=== PATIENT | male | born 1975 | race African-American/Black ===

== ENCOUNTER 2016-04-17 18:30 | Emergency (ER) | payer SELFPAY ==
[~2016-04-17] VITALS: Ht 193 cm; Wt 108.9 kg
[2016-04-17 19:14] VITALS: BP 128/94
[2016-04-17] MEDS ORDERED: IBUP-1007 PO (20:49)
[2016-04-17] MEDS ORDERED: PERM60CR11 TP (20:49)
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
--- NOTE | 2016-04-18 09:09 | RAD ---
Portable left elbow, 3 views, 04/17/2016: History: Medial epicondylar pain No fracture or dislocation is identified. No significant arthritic change is seen. No joint effusion is evident. IMPRESSION: No significant left elbow abnormality is detected.
== END 2016-04-17 20:59 | disposition home or self-care (01) ==
LOC: ER 18:30
DX: M77.02 Medial epicondylitis, left elbow (principal); B86 Scabies; F17.200 Nicotine dependence, unspecified, uncomplicated; Z98.61 Coronary angioplasty status; Z91.013 Allergy to seafood
CPT/HCPCS: 73080; 99284

== ENCOUNTER 2016-06-05 20:17 | Emergency (ER) | payer SELFPAY ==
[~2016-06-05] VITALS: Ht 182.9 cm; Wt 105.7 kg
[~2016-06-05 20:17] MED LIST: IBUP-1007 PO; PERM60CR11 TP
[2016-06-05 20:23] VITALS: BP 127/79
--- NOTE | 2016-06-05 20:55 | PHYS DOC ---
Past Medical History Past Medical History: Angina, Other Additional Past Medical Histor: IRREGULAR HEARTBEAT Past Surgical History: Angioplasty Additional Past Surgical Histo: HEART CATH WITH NO STENTS, Rt ELBOW sx Alcohol Use: None Drug Use: None Adult General Chief Complaint Chief Complaint: SKIN PROBLEM [facility] HPI Patient is a 41 year old female presents emergency department stating that he has 2 abscesses on the back of his head when abscesses bilateral groin areas that he's had for the last few days. He denies any drainage or discharge coming from either of those. He does state that he has multiple little pinpoint scabbed areas on his chest and arms in which she's had since February. He was seen here in March was provided with permethrin cream in which patient states he lost the prescription. Patient denies any drainage or discharge coming from any of the areas. Denies any fever, chills. Review of Systems Review of Systems Constitutional: Denies fever or chills [] Eyes: Denies change in visual acuity, redness, or eye pain [] HENT: Denies nasal congestion or sore throat [] Respiratory: Denies cough or shortness of breath [] Cardiovascular: No additional information not addressed in HPI [] GI: Denies abdominal pain, nausea, vomiting, bloody stools or diarrhea [] : Denies dysuria or hematuria [] Musculoskeletal: Denies back pain or joint pain [] Integument: rash and multiple abscesses Neurologic: Denies headache, focal weakness or sensory changes [] Current Medications Current Medications Current Medications Medications (Trade) Dose Ordered Sig/[facility] Start Time Stop Time Status Last Admin Dose Admin Lidocaine/Sodium Bicarbonate (Buffered Lidocaine 1%) 20 ml 1X ONCE 06/05/16 21:00 06/05/16 21:01 DC 06/05/16 21:00 20 ML Allergies Allergies Allergies Coded Allergies Type Severity Reaction Last Updated Verified shellfish derived Allergy Intermediate rash, vomiting 01/07/15 Yes Physical Exam Physical Exam Constitutional: Well developed, well nourished, no acute distress, non-toxic appearance. [] HENT: Normocephalic, atraumatic, bilateral external ears normal, oropharynx moist, no oral exudates, nose normal. [] Eyes: PERRLA, EOMI, conjunctiva normal, no discharge. [] Neck: Normal range of motion, no tenderness, supple, no stridor. [] Cardiovascular:Heart rate regular rhythm, no murmur [] Lungs & Thorax: Bilateral breath sounds clear to auscultation [] Skin: Warm, dry, no erythema. Patient with generalized pinpoint rashes throughout the abdomen and arms and chest area. Patient with 2 abscesses noted on the back of his head that is soft and tender and appears to be pustular. Patient also noted in the bilateral right and left groin area that appears to be red in color with no fluctuation noted. Back: No tenderness Extremities: No tenderness, no cyanosis, no clubbing, ROM intact, no edema. [] Neurologic: Alert and oriented X 3, normal motor function, normal sensory function, no focal deficits noted. [] Psychologic: Affect normal, judgement normal, mood normal. [] Current Patient Data Vital Signs Vital Signs Date Time Temp Pulse Resp B/P Pulse Ox O2 Delivery O2 Flow Rate FiO2 06/05/16 20:23 98.8 87 18 98 Room Air 98.8 EKG EKG [] Radiology/Procedures Radiology/Procedures [] Course & Med Decision Making Course & Med Decision Making Pertinent Labs and Imaging studies reviewed. (See chart for details) 2 areas on the back of the head were injected with lidocaine total lidocaine use was approximately 3 mL. #11 blade was used to incise both areas with the area behind the right ear have a minimal yellow drainage noted. Area on the back of the head had thick yellow drainage noted. Patient will be placed on antibiotics Bactrim 1 tablet twice day for the next 10 days. We'll also provide patient with permethrin cream for the rest of his body. Patient was provided with signs and symptoms to return back to emergency department. Patient agrees with discharge instructions treatment regimens and follow-up recommendations. [] Dragon Disclaimer Dragon Disclaimer This electronic medical record was generated, in whole or in part, using a voice recognition dictation system. Departure Departure Impression: Primary Impression: Abscess Additional Impression: Scabies Disposition: 01 HOME, SELF-CARE Condition: STABLE Referrals: HONG BOLAND MD (PCP) Patient Instructions: Abscess, [id number], Incision and Drainage, Care After , Scabies Additional Instructions: Activity as tolerated. Medications as prescribed. Is a permethrin cream tonight and he may repeat it in [address] her on your body leave it on for 8-10 hours and then wash it off. Tylenol or ibuprofen for pain and discomfort. Moist packs to the groin area where you have further abscesses. Follow-up primary care physician in the next 3-5 days. Turn back to emergency prior signs symptoms of become worse. Scripts Sulfamethoxazole/Trimethoprim (Bactrim Ds Tablet)1 Each Tablet1 Tab PO BID #20 TAB Prov:MARÍA CHAMPION APRN 06/05/16 Permethrin 60 Gm Cream..g.1 [place] TP ONCE #60 GM Ref 1 Prov:MARÍA CHAMPION APRN 06/05/16 Problem Qualifiers MARÍA CHAMPION APRN Jun 05, 2016 20:55
[2016-06-05] MEDS ORDERED: LIDOCAINE 1% / SOD BICARB 8.4% 20 ML VIAL. IJ ONE (21:00)
[2016-06-05] MEDS ORDERED: PERM60CR2 TP (21:44)
[2016-06-05] MEDS ORDERED: SULF1TAB24 PO (21:44)
== END 2016-06-05 21:59 | disposition home or self-care (01) ==
LOC: ER 20:17
DX: L02.811 Cutaneous abscess of head [any part, except face] (principal); L02.214 Cutaneous abscess of groin; B86 Scabies; Z91.013 Allergy to seafood; Z98.61 Coronary angioplasty status
CPT/HCPCS: 10060; 10061; 99283-25; 99284-25

== ENCOUNTER 2016-07-29 23:35 | Emergency (ER) | payer SELFPAY ==
[~2016-07-29] VITALS: Ht 193 cm; Wt 108.9 kg
[~2016-07-29 23:35] MED LIST changes: +PERM60CR12 TP; +SULF1TAB24 PO
[2016-07-29 23:43] VITALS: BP 128/85
[2016-07-30] MEDS ORDERED: DIPHTH,PERTUSS(ACELL),TET TOX 0.5 ML DISP.SYRIN. VAX IM ONE
[2016-07-30] MEDS ORDERED: LIDOCAINE 1%/EPI 1:100,000 20 ML VIAL. IJ ONE
[2016-07-30] MEDS ORDERED: HYDROcodone/APAP 5/325MG 1 TAB TABLET PO ONE (00:15)
[2016-07-30] MEDS ORDERED: MUPI22OI2 TP (00:19)
[2016-07-30] MEDS ORDERED: SULF1TAB24 PO (00:19)
--- NOTE | 2016-07-30 00:19 | PHYS DOC ---
Past Medical History Past Medical History: Angina, Other Additional Past Medical Histor: IRREGULAR HEARTBEAT Past Surgical History: Angioplasty Additional Past Surgical Histo: HEART CATH WITH NO STENTS, Rt ELBOW sx Alcohol Use: None Drug Use: None Adult General Chief Complaint Chief Complaint: ABSCESS HPI HPI Patient is a 41 year old male who presents with abscess. The patient reports red, painful, swollen area to right medial buttock. Also has swelling to left posterior thigh & multiple facial nodules after shaving. He denies fevers/ chills, vomiting. Tetanus up to date. History of previous abscess to elbow requiring surgical I&D. Review of Systems Review of Systems Constitutional: Denies fever or chills HENT: Denies nasal congestion or sore throat Respiratory: Denies cough or shortness of breath Cardiovascular: Denies chest pain GI: Denies abdominal pain, nausea, vomiting Musculoskeletal: Denies back pain or joint pain Integument: Reports abscess Neurologic: Denies headache Current Medications Current Medications Current Medications Medications (Trade) Dose Ordered Sig/[facility] Start Time Stop Time Status Last Admin Dose Admin Acetaminophen/ Hydrocodone Bitart (Lortab 5/325) 2 tab 1X ONCE 07/30/16 00:15 07/30/16 00:16 DC 07/30/16 00:20 2 TAB Diphtheria/ Tetanus/Acell Pertussis (Boostrix) 0.5 ml ONCE ONCE 07/30/16 00:00 07/30/16 00:13 DC Lidocaine/ Epinephrine (Xylocaine 1%-Epi 1:100,000) 20 ml 1X ONCE 07/30/16 00:00 07/30/16 00:01 DC 07/30/16 00:00 20 ML Allergies Allergies Allergies Coded Allergies Type Severity Reaction Last Updated Verified shellfish derived Allergy Intermediate rash, vomiting 01/07/15 Yes Physical Exam Physical Exam Constitutional: Well developed, well nourished, no acute distress, non-toxic appearance. HENT: Normocephalic, atraumatic, bilateral external ears normal, oropharynx moist, nose normal. Eyes: conjunctiva normal, no discharge. Cardiovascular: no edema. Lungs & Thorax: no respiratory distress. Abdomen: nondistended. Skin: right medial buttock 4x8 area of erythema & warmth with induration & fluctuance. proximally to left posterior thigh there is a 5 x 5 area of erythema & warmth without fluctuance or induration. both are tender. scattered folliculitis to face greatest on the left. Extremities: No deformity, no edema. Neurologic: Alert and oriented X 3 Current Patient Data Vital Signs Vital Signs Date Time Temp Pulse Resp B/P (MAP) Pulse Ox O2 Delivery O2 Flow Rate FiO2 07/29/16 23:43 98.6 109 18 128/85 (99) 97 Room Air 98.6 EKG EKG [] Radiology/Procedures Radiology/Procedures [] Course & Med Decision Making Course & Med Decision Making Pertinent Labs and Imaging studies reviewed. (See chart for details) [] Dragon Disclaimer Dragon Disclaimer This electronic medical record was generated, in whole or in part, using a voice recognition dictation system. The patient presents with abscess/cellulitis/folliculitis. Gave norco for pain , performed I&D of buttock abscess. The area on the thigh appears more cellulitic less likely to benefit from I&D. Gave prescription for bactrim as well as mupirocin for folliculitis. Recommend wound care, leave packing until it falls out, take tylenol or ibuprofen for pain. Return in 2 days for wound check. Come back for high fever, uncontrolled vomiting, spreading erythema/ warmth/swelling, any otherwise worsening condition. Discharged home in stable & improved condition. Incision and Drainage Indication: abscess Procedure: The patient was positioned appropriately. Local anesthesia was achieved with injection of 6 ml of 1% lidocaine with epinephrine. An incision was then made over the apex of the lesion and a copious amount of purulent/ bloody material was expressed. The drainage cavity was packed with sterile gauze. The patients tetanus status was up to date. The patient tolerated the procedure well. Complications: none. Departure Departure Impression: Primary Impression: Abscess Additional Impressions: Cellulitis Folliculitis Disposition: 01 HOME, SELF-CARE Condition: STABLE Referrals: NO PCP (PCP) Patient Instructions: Abscess, [id number] Additional Instructions: You were seen in the emergency department today for buttock abscess. It was drained here in the emergency department. Please keep clean and dry. Take antibiotics as prescribed. Use the ointment for sores on your face. Take tylenol or ibuprofen as needed for pain. Come back in 2 days for wound check. Come back sooner for high fever, spreading redness/warmth/swelling, any otherwise worsening condition. Scripts Mupirocin (MUPIROCIN OINTMENT) 22 Gm Oint...g. 1 ELISA TP TID for WOUND CARE, #1 TUBE Prov: AZALIA BOSE MD 07/30/16 Sulfamethoxazole/Trimethoprim (BACTRIM DS TABLET) 1 Each Tablet 1 TAB PO BID, #14 TAB Prov: AZALIA BOSE MD 07/30/16 Problem Qualifiers AZALIA BOSE MD Jul 30, 2016 00:19
== END 2016-07-30 00:30 | disposition home or self-care (01) ==
LOC: ER 23:35
DX: L02.31 Cutaneous abscess of buttock (principal); L03.317 Cellulitis of buttock; L73.9 Follicular disorder, unspecified
CPT/HCPCS: 10060; 99283; J3490

== ENCOUNTER 2016-07-31 16:38 | Emergency (ER) | payer SELFPAY ==
[~2016-07-31 16:38] MED LIST changes: +MUPI22OI2 TP
[2016-07-31 16:55] VITALS: BP 133/85
--- NOTE | 2016-07-31 17:31 | PHYS DOC ---
Past Medical History Past Medical History: Angina, Other Additional Past Medical Histor: IRREGULAR HEARTBEAT Past Surgical History: Angioplasty Additional Past Surgical Histo: HEART CATH WITH NO STENTS, Rt ELBOW sx Alcohol Use: None Drug Use: None Adult General Chief Complaint Chief Complaint: WOUND CHECK HPI HPI Patient is a 41 year old male who presents for wound check for an abscess on the right buttocks that was drained 2 days ago and packed. Patient states he did not fill his antibiotics prescription. Review of Systems Review of Systems Constitutional: Denies fever or chills [] Eyes: Denies change in visual acuity, redness, or eye pain [] Musculoskeletal: Denies back pain or joint pain [] Integument: Wound check for an abscess Neurologic: Denies headache, focal weakness or sensory changes [] Endocrine: Denies polyuria or polydipsia [] Allergies Allergies Allergies Coded Allergies Type Severity Reaction Last Updated Verified shellfish derived Allergy Intermediate rash, vomiting 01/07/15 Yes Physical Exam Physical Exam Constitutional: Well developed, well nourished, no acute distress, non-toxic appearance. [] HENT: Normocephalic, atraumatic, bilateral external ears normal, oropharynx moist, no oral exudates, nose normal. [] Skin: Right buttock with an open packed wound with small amount of cellulitis. There is another area of cellulitis on the right posterior thigh approximately 2 x 2 centimeters. Fluctuance to the area. The area is warm and tender to palpate. Back: No tenderness, no CVA tenderness. [] Extremities: No tenderness, no cyanosis, no clubbing, ROM intact, no edema. [] Neurologic: Alert and oriented X 3, normal motor function, normal sensory function, no focal deficits noted. [] Psychologic: Affect normal, judgement normal, mood normal. [] Current Patient Data Vital Signs Vital Signs Date Time Temp Pulse Resp B/P (MAP) Pulse Ox O2 Delivery O2 Flow Rate FiO2 07/31/16 16:55 99.5 111 20 97 Room Air 99.5 EKG EKG [] Radiology/Procedures Radiology/Procedures [] Course & Med Decision Making Course & Med Decision Making Pertinent Labs and Imaging studies reviewed. (See chart for details) Patient is in the ED for wound check for an abscess that we drained 2 days ago and packed. Packing was removed today by me, he was provided wound care instructions. He also has another area of cellulitis on the right thigh he has a prescription for antibiotics which he never filled. I highly emphasized to patient the importance of filling his prescription and taking the antibiotics. Dimitri Disclaimer Dimitri Disclaimer This electronic medical record was generated, in whole or in part, using a voice recognition dictation system. Departure Departure Impression: Primary Impression: Abscess Additional Impressions: Wound of cheek Cellulitis of left lower extremity without foot Disposition: HOME, SELF-CARE Condition: STABLE Referrals: NO PCP (PCP) Follow-up with your doctor in one week Patient Instructions: Abscess, Care After Additional Instructions: Please stop at the pharmacist and fill your prescription for antibiotics and start taking it right away. Your abscess packing was removed today. You can shower. Keep the area covered if it's draining otherwise leave it open. Follow- up with your primary care doctor in the next 7 days. Problem Qualifiers Additional Impressions: Wound of cheek Encounter type: initial encounter Laterality: right Qualified Codes: S01.401A - Unspecified open wound of right cheek and temporomandibular area, initial encounter CARLOS CORTES HAND CELL TUBER Jul 31, 2016 17:31
== END 2016-07-31 17:35 | disposition home or self-care (01) ==
LOC: ER 16:38
DX: Z48.01 Encounter for change or removal of surgical wound dressing (principal); L03.116 Cellulitis of left lower limb; Z95.5 Presence of coronary angioplasty implant and graft; Z91.013 Allergy to seafood
CPT/HCPCS: 99281

== ENCOUNTER 2016-09-13 23:16 | Emergency (ER) | payer SELFPAY ==
[~2016-09-13] VITALS: Ht 193 cm; Wt 108.9 kg
[2016-09-13 23:26] VITALS: BP 141/93
[2016-09-13] MEDS ORDERED: SULF1TAB24 PO (23:32)
--- NOTE | 2016-09-13 23:32 | PHYS DOC ---
Past Medical History Past Medical History: Angina, Other Additional Past Medical Histor: IRREGULAR HEARTBEAT Past Surgical History: Angioplasty Additional Past Surgical Histo: HEART CATH WITH NO STENTS, Rt ELBOW sx Alcohol Use: None Drug Use: None Adult General Chief Complaint Chief Complaint: SKIN RASH/ABSCESS [facility] HPI Patient is a 41 year old male that presents to the emergency department with complaints of a wound to the back of head. He states that his girlfriend picked at this morning and got pus out of it. He is concerned that she did not get all the pus out and feels it is still swollen. He is here now seeking further evaluation. He denies fever, headache, nausea, Review of Systems Review of Systems Constitutional: Denies fever or chills [] Eyes: Denies change in visual acuity, redness, or eye pain [] HENT: Denies nasal congestion or sore throat [] Respiratory: Denies cough or shortness of breath [] Cardiovascular: No additional information not addressed in HPI [] GI: Denies abdominal pain, nausea, vomiting, bloody stools or diarrhea [] : Denies dysuria or hematuria [] Musculoskeletal: Denies back pain or joint pain [] Integument: Rash Neurologic: Denies headache, focal weakness or sensory changes [] Endocrine: Denies polyuria or polydipsia [] Allergies Allergies Allergies Coded Allergies Type Severity Reaction Last Updated Verified shellfish derived Allergy Intermediate rash, vomiting 01/07/15 Yes Physical Exam Physical Exam Constitutional: Well developed, well nourished, no acute distress, non-toxic appearance. [] Neck: Normal range of motion, no tenderness, supple, no lymphadenopathy Cardiovascular:Heart rate regular rhythm, no murmur [] Lungs & Thorax: Bilateral breath sounds clear to auscultation [] Skin: Left posterior parietal region with a 1 cm area of induration with central opening a small amount of purulent discharge. The surrounding skin is erythematous. Mildly tender to palpate. EKG EKG [] Radiology/Procedures Radiology/Procedures [] Course & Med Decision Making Course & Med Decision Making Pertinent Labs and Imaging studies reviewed. (See chart for details) [] Dragon Disclaimer Dragon Disclaimer This electronic medical record was generated, in whole or in part, using a voice recognition dictation system. Departure Departure Impression: Primary Impression: Abscess or cellulitis of scalp Disposition: 01 HOME, SELF-CARE Condition: STABLE Referrals: NO PCP (PCP) [facility] Patient Instructions: Abscess, Cellulitis Additional Instructions: Warm packs to the affected area 4 times a day. Keep the area clean and dry. Scripts Sulfamethoxazole/Trimethoprim (BACTRIM DS TABLET) 1 Each Tablet 1 TAB PO BID, #20 TAB Prov: FELIX TAVARES APRN 09/13/16 FELIX TAVARES APRN Sep 13, 2016 23:32
== END 2016-09-13 23:35 | disposition home or self-care (01) ==
LOC: ER 23:16
DX: L03.811 Cellulitis of head [any part, except face] (principal); Z95.1 Presence of aortocoronary bypass graft; Z91.013 Allergy to seafood
CPT/HCPCS: 99283

== ENCOUNTER 2016-11-10 11:11 | Emergency (ER) | payer SELFPAY ==
[~2016-11-10] VITALS: Ht 195.6 cm; Wt 108.9 kg
[2016-11-10 11:45] VITALS: BP 127/85
[2016-11-10] MEDS ORDERED: SULF1TAB24 PO (11:53)
--- NOTE | 2016-11-10 11:54 | PHYS DOC ---
Past Medical History Past Medical History: Angina, Other Additional Past Medical Histor: IRREGULAR HEARTBEAT Past Surgical History: Angioplasty Additional Past Surgical Histo: HEART CATH WITH NO STENTS, Rt ELBOW sx Alcohol Use: None Drug Use: None Adult General Chief Complaint Chief Complaint: INSECT BITE [place] [employer] HPI Patient is a 41 year old male presents to the emergency department states that he has a bite to the outer part of his left leg. He states that it's been there for 1-2 days. He denies any drainage or discharge noted from the site. The area appears to be size of a quarter very tender to touch. The center part appears to have a white core noted. Peripheral pulses 2+ cap refill brisk less than 2 seconds. Patient states his last tetanus was approximately 6 months ago Review of Systems Review of Systems Constitutional: Denies fever or chills [] Eyes: Denies change in visual acuity, redness, or eye pain [] HENT: Denies nasal congestion or sore throat [] Respiratory: Denies cough or shortness of breath [] Cardiovascular: No additional information not addressed in HPI [] GI: Denies abdominal pain, nausea, vomiting, bloody stools or diarrhea [] : Denies dysuria or hematuria [] Musculoskeletal: Denies back pain or joint pain [] Integument: Denies rash or skin lesions. Patient with insect bite to the left lateral leg Neurologic: Denies headache, focal weakness or sensory changes [] Endocrine: Denies polyuria or polydipsia [] Allergies Allergies Allergies Coded Allergies Type Severity Reaction Last Updated Verified shellfish derived Allergy Intermediate rash, vomiting 01/07/15 Yes Physical Exam Physical Exam Constitutional: Well developed, well nourished, no acute distress, non-toxic appearance. [] HENT: Normocephalic, atraumatic, bilateral external ears normal, oropharynx moist, no oral exudates, nose normal. [] Eyes: PERRLA, EOMI, conjunctiva normal, no discharge. [] Neck: Normal range of motion, no tenderness, supple, no stridor. [] Cardiovascular:Heart rate regular rhythm Lungs & Thorax: no respiratory distress Skin: Warm, dry, no erythema, no rash. Patient with a quarter size red area noted to the left lateral area. Area with white center. Tender to touch. No drainage or discharge noted from the site. Back: No tenderness Extremities: No tenderness, no cyanosis, no clubbing, ROM intact, no edema. [] Neurologic: Alert and oriented X 3, normal motor function, normal sensory function, no focal deficits noted. [] Psychologic: Affect normal, judgement normal, mood normal. [] EKG EKG [] Radiology/Procedures Radiology/Procedures [] Course & Med Decision Making Course & Med Decision Making Pertinent Labs and Imaging studies reviewed. (See chart for details) Patient will be discharged home in stable condition. Recommended warm moist packs to the area. Antibiotics as prescribed. Tylenol or Ibuprofen for pain and discomfort. Elevation as much as possible. Recommended followup with primary care provider in 3-5 days. Signs and symptoms to return to the emergency department has been provided. All questions and concerns have been answered. [] Dragon Disclaimer Dragon Disclaimer This electronic medical record was generated, in whole or in part, using a voice recognition dictation system. Departure Departure Impression: Primary Impression: Cellulitis Disposition: HOME, SELF-CARE Condition: STABLE Referrals: NO PCP (PCP) Patient Instructions: Cellulitis, [id number] Additional Instructions: Activity as tolerated Medication as prescribed Tylenol or Ibuprofen for pain and discomfort Elevation as much as possible Warm moist packs to the area 4-5 times a day. Followup with primary care provider in 3-5 days Return to emergency department as needed for signs and symptoms that become worse. Scripts Sulfamethoxazole/Trimethoprim (BACTRIM DS TABLET) 1 Each Tablet 1 TAB PO BID, #20 TAB Prov: MARÍA CHAMPION APRN 11/10/16 Problem Qualifiers Primary Impression: Cellulitis Site of cellulitis: unspecified site Qualified Codes: L03.90 - Cellulitis, unspecified MARÍA CHAMPION APRN Nov 10, 2016 11:54
== END 2016-11-10 12:10 | disposition home or self-care (01) ==
LOC: ER 11:11
DX: L03.116 Cellulitis of left lower limb (principal); Z91.013 Allergy to seafood; Z98.61 Coronary angioplasty status
CPT/HCPCS: 99283

== ENCOUNTER 2017-03-05 21:30 | Emergency (ER) | payer SELFPAY | END 2017-03-05 22:50 | disposition home or self-care (01) | LOC: ER 21:30 | DX: H01.004 Unspecified blepharitis left upper eyelid (principal); Z91.013 Allergy to seafood; Z98.61 Coronary angioplasty status | CPT/HCPCS: 99283 ==

== ENCOUNTER 2017-08-29 21:04 | Emergency (ER) | payer OTHER ==
[2017-08-29] MEDS: TETRACAINE 0.5% OPHTH SOLUTION 4ML BOTTLE. OD (21:30)
[2017-08-29] MEDS: FLUORESCEIN OPHTH TEST STRIP. OD (21:30)
== END 2017-08-29 22:02 | disposition home or self-care (01) ==
LOC: ER 21:04
DX: Z77.098 Contact with and (suspected) exposure to other hazardous, chiefly nonmedicinal, chemicals (principal); H53.8 Other visual disturbances; I10 Essential (primary) hypertension; Z91.013 Allergy to seafood
CPT/HCPCS: 99283

== ENCOUNTER 2017-10-16 00:43 | Emergency (ER) | payer BC, OTHER ==
[~2017-10-16] VITALS: Ht 195.6 cm; Wt 108.0 kg
[~2017-10-16 00:43] MED LIST changes: +DOXY100C2 PO
[2017-10-16 00:57] VITALS: BP 158/105
--- NOTE | 2017-10-16 01:06 | PHYS DOC ---
Past Medical History Past Medical History: Angina, Arrhythmia, Hypertension Additional Past Medical Histor: IRREGULAR HEARTBEAT Past Surgical History: Angioplasty, Other Additional Past Surgical Histo: HEART CATH WITH NO STENTS, LEFT ELBOW I&D 07/12 Alcohol Use: None Drug Use: None Adult General Chief Complaint Chief Complaint: HEADACHE HPI HPI Patient is a 42 year old male who presents with infected hair follicle and local scalp pain. Patient states that he had a bump on his right posterior parietal scalp in the area of the hairline it's been hurting for approximately one week. He tender to touch and then he touches it it creates a headache. Patient does not have any internal headache pain but localizes his pain to the area of this folliculitis. Acute complaints at this time. Review of Systems Review of Systems Constitutional: Denies fever or chills [] Eyes: Denies change in visual acuity, redness, or eye pain [] HENT: Denies nasal congestion or sore throat [] Respiratory: Denies cough or shortness of breath [] Cardiovascular: No additional information not addressed in HPI [] GI: Denies abdominal pain, nausea, vomiting, bloody stools or diarrhea [] : Denies dysuria or hematuria [] Musculoskeletal: Denies back pain or joint pain [] Integument: Denies rash, positive for skin lesions [] Neurologic: Denies headache, focal weakness or sensory changes [] Endocrine: Denies polyuria or polydipsia [] All other systems were reviewed and found to be within normal limits, except as documented in this note. Current Medications Current Medications Current Medications Medications (Trade) Dose Ordered Sig/Aruna Start Time Stop Time Status Last Admin Dose Admin Acetaminophen (Tylenol) 1,000 mg 1X ONCE 10/16/17 01:30 10/16/17 01:31 10/16/17 01:21 1,000 MG Lidocaine/Sodium Bicarbonate (Buffered Lidocaine 1%) 3 ml 1X ONCE 10/16/17 01:30 10/16/17 01:31 10/16/17 01:21 3 ML Allergies Allergies Allergies Coded Allergies Type Severity Reaction Last Updated Verified shellfish derived Allergy Intermediate rash, vomiting 01/07/15 Yes Physical Exam Physical Exam Constitutional: Well developed, well nourished, no acute distress, non-toxic appearance. [] HENT: Normocephalic, atraumatic, bilateral external ears normal, oropharynx moist, no oral exudates, nose normal. Patient with a 1 cm area of erythema with a central section approximately 1 mm in diameter which appears to be an infected hair follicle. There is no abscess formation but is exquisitely tender to touch. Consistent with a very local cellulitis[] Eyes: PERRLA, EOMI, conjunctiva normal, no discharge. [] Neck: Normal range of motion, no tenderness, supple, no stridor. [] Cardiovascular:Heart rate regular rhythm, no murmur [] Lungs & Thorax: Bilateral breath sounds clear to auscultation [] Abdomen: Bowel sounds normal, soft, no tenderness, no masses, no pulsatile masses. [] Skin: Warm, dry, no erythema, no rash. [] Back: No tenderness, no CVA tenderness. [] Extremities: No tenderness, no cyanosis, no clubbing, ROM intact, no edema. [] Neurologic: Alert and oriented X 3, normal motor function, normal sensory function, no focal deficits noted. [] Psychologic: Affect normal, judgement normal, mood normal. [] Current Patient Data Vital Signs Vital Signs Date Time Temp Pulse Resp B/P (MAP) Pulse Ox O2 Delivery O2 Flow Rate FiO2 10/16/17 00:57 98.9 73 16 158/105 (122) 97 Room Air 98.9 EKG EKG [] Radiology/Procedures Radiology/Procedures Area was cleansed and prepped and a local injection of lidocaine 1% without epi [ 2cc] was placed centrally in the area of folliculitis for pain control. There is no pus expressed.[] Course & Med Decision Making Course & Med Decision Making Pertinent Labs and Imaging studies reviewed. (See chart for details) Received immediate relief of tenderness and pain after injecting the site with lidocaine [] Dragon Disclaimer Dragon Disclaimer This electronic medical record was generated, in whole or in part, using a voice recognition dictation system. Departure Departure Impression: Primary Impression: Cellulitis Additional Impression: Folliculitis Disposition: HOME, SELF-CARE Condition: IMPROVED Referrals: NO PCP (PCP) Patient Instructions: Folliculitis Scripts Cephalexin (KEFLEX) 500 Mg Capsule 1 CAP PO TID, #30 CAP Prov: DANIELA MOTA MD 10/16/17 Problem Qualifiers DANIELA MOTA MD Oct 16, 2017 01:06
[2017-10-16] MEDS ORDERED: LIDOCAINE WITH 8.4% SOD BICARB 3 ML DISP.SYRIN. ONE (01:13)
[2017-10-16] MEDS ORDERED: CEPH-264 PO (01:24)
[2017-10-16] MEDS ORDERED: ACETAMINOPHEN 500 MG TABLET PO ONE (01:30)
[2017-10-16] MEDS ORDERED: LIDOCAINE WITH 8.4% SOD BICARB 3 ML DISP.SYRIN. INJ ONE (01:30)
[2017-10-16] MEDS ORDERED: CEPHALEXIN 250 MG CAPSULE. PO ONE (02:00)
== END 2017-10-16 02:34 | disposition home or self-care (01) ==
LOC: ER 00:43
DX: L73.9 Follicular disorder, unspecified (principal); L03.818 Cellulitis of other sites; Z95.5 Presence of coronary angioplasty implant and graft; R51 Headache; I10 Essential (primary) hypertension; Z91.013 Allergy to seafood
CPT/HCPCS: 96361; 96372; 96374; 96375; 99283-25; 99285-25

== ENCOUNTER 2018-01-11 18:02 | Emergency (ER) | payer BC ==
[~2018-01-11] VITALS: Ht 195.6 cm; Wt 102.1 kg
[~2018-01-11 18:02] MED LIST changes: +CEPH-264 PO
[2018-01-11] MEDS ORDERED: MORPHINE SULFATE 4 MG/ML VIAL. IV ONE (18:30)
[2018-01-11] MEDS ORDERED: IV NORMAL SALINE 1000ML BAG 1,000 ML IV ONE ×2 (18:30→19:45)
[2018-01-11] MEDS ORDERED: ONDANSETRON PF 4 MG/2 ML VIAL. IV ONE (18:30)
[2018-01-11 18:34] LABS: BASO # 0.1 x10^3/uL (0.0-0.2); BASO % 1 % (0-3); EOS # 0.1 x10^3/uL (0.0-0.7); EOS % 1 % (0-3); HEMATOCRIT 44.8 % (39.0-53.0); HEMOGLOBIN 16.1 g/dL (13.0-17.5); LYMPH # 3.6 x10^3/uL (1.0-4.8); LYMPH % 33 % (24-48); MEAN CORPUSCULAR HEMOGLOBIN 31 pg (25-35); MEAN CORPUSCULAR HGB CONC 36 g/dL (31-37); MEAN CORPUSCULAR VOLUME 87 fL (79-100); MONO # 1.1 x10^3/uL (0.0-1.1); MONO % 10 % (0-9); NEUT # 5.9 x10^3uL (1.8-7.7); NEUT % 54 % (31-73); PLATELET COUNT 252 x10^3/uL (140-400); RED BLOOD COUNT 5.14 x10^6/uL (4.30-5.70); WHITE BLOOD COUNT 10.9 x10^3/uL (4.0-11.0)
[2018-01-11 18:41] LABS: CALCIUM 9.1 mg/dL (8.5-10.1); CREATININE 1.1 mg/dL (0.7-1.3); GFR 88.4; POTASSIUM 3.9 mmol/L (3.5-5.1)
--- NOTE | 2018-01-11 19:06 | EKG ---
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
[2018-01-11 19:10] LABS: BILIRUBIN,URINE NEGATIVE (NEG); CLARITY,URINE CLEAR; COLOR,URINE YELLOW; NITRITE,URINE NEGATIVE (NEG); PROTEIN,URINE NEGATIVE (NEG-TRACE)
--- NOTE | 2018-01-11 19:12 | PHYS DOC ---
Past Medical History Past Medical History: Angina, Arrhythmia, Hypertension Additional Past Medical Histor: IRREGULAR HEARTBEAT Past Surgical History: Angioplasty, Other Additional Past Surgical Histo: HEART CATH WITH NO STENTS, LEFT ELBOW I&D 07/12 Alcohol Use: None Drug Use: None Adult General Chief Complaint Chief Complaint: CHEST PAIN HPI HPI Patient is a 42 year old male who presents with syncopal episode. 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 He was witnessed to have a syncopal episode did fall to the floor. The patient states he felt kind of dizzy prior to the incident. He did not have chest pain or palpitations. That said, he does complain of constant chest pain over the last 2 weeks. Pain has been over the left side of his chest and pectoralis muscle. Pain has been constant but waxing and waning in intensity. He has not identified any aggravating or alleviating factors. No cough, fever, chills. No shortness of breath. The patient does have a known history of high blood pressure for which he is not currently treated. He does not endorse a significant family history of coronary artery disease. And route to the emergency department, he was given nitroglycerin which he perceives did improve his pain symptoms. He was also given aspirin. Patient also states he does not get much sleep. He endorses 1-2 hours of sleep nightly. This is in part because he works shifting schedules at his job. He denies anxiety or depression or suicidality. Review of Systems Review of Systems Constitutional: Denies fever Eyes: Denies change in visual acuity HENT: Denies nasal congestion Respiratory: Denies cough Cardiovascular: No additional information not addressed in HPI GI: Denies abdominal pain : Denies dysuria Musculoskeletal: Denies back pain Integument: Denies rash or skin lesions Neurologic: Denies headache All other systems were reviewed and found to be within normal limits, except as documented in this note. Current Medications Current Medications Current Medications Medications (Trade) Dose Ordered Sig/Aruna Start Time Stop Time Status Last Admin Dose Admin Morphine Sulfate (Morphine Sulfate) 4 mg 1X ONCE 18 18:30 01/11/18 18:31 DC 01/11/18 18:44 4 MG Ondansetron HCl (Zofran) 4 mg 1X ONCE 01/11/18 18:30 01/11/18 18:31 DC 01/11/18 18:44 4 MG Sodium Chloride 1,000 ml @ 1,000 mls/hr 1X ONCE 01/11/18 19:45 01/11/18 20:45 DC 01/11/18 19:59 1,000 MLS/HR Allergies Allergies Allergies Coded Allergies Type Severity Reaction Last Updated Verified shellfish derived Allergy Intermediate rash, vomiting 01/07/15 Yes Physical Exam Physical Exam Constitutional: Well developed, well nourished, no acute distress, non-toxic appearance HENT: Normocephalic, atraumatic, bilateral external ears normal, oropharynx dry Eyes: PERRLA, EOMI, conjunctiva normal Neck: Normal range of motion, no tenderness Cardiovascular:Heart rate regular rhythm, no murmur Lungs & Thorax: Bilateral breath sounds clear to auscultation Abdomen: Bowel sounds normal, soft, no tenderness Skin: Warm, dry, no erythema, no rash Extremities: No edema Neurologic: Alert and oriented X 3 Psychologic: Affect normal Current Patient Data Vital Signs Vital Signs Date Time Temp Pulse Resp B/P (MAP) Pulse Ox O2 Delivery O2 Flow Rate FiO2 01/11/18 18:15 98.6 66 18 151/83 (105) 99 Room Air 98.6 Lab Values Laboratory Tests Test 01/11/18 18:15 01/11/18 19:00 White Blood Count 10.9 x10^3/uL (4.0-11.0) Red Blood Count 5.14 x10^6/uL (4.30-5.70) Hemoglobin 16.1 g/dL (13.0-17.5) Hematocrit 44.8 % (39.0-53.0) Mean Corpuscular Volume 87 fL (79-100) Mean Corpuscular Hemoglobin 31 pg (25-35) Mean Corpuscular Hemoglobin Concent 36 g/dL (31-37) Red Cell Distribution Width 15.0 % (11.5-14.5) H Platelet Count 252 x10^3/uL (140-400) Neutrophils (%) (Auto) 54 % (31-73) Lymphocytes (%) (Auto) 33 % (24-48) Monocytes (%) (Auto) 10 % (0-9) H Eosinophils (%) (Auto) 1 % (0-3) Basophils (%) (Auto) 1 % (0-3) Neutrophils # (Auto) 5.9 x10^3uL (1.8-7.7) Lymphocytes # (Auto) 3.6 x10^3/uL (1.0-4.8) Monocytes # (Auto) 1.1 x10^3/uL (0.0-1.1) Eosinophils # (Auto) 0.1 x10^3/uL (0.0-0.7) Basophils # (Auto) 0.1 x10^3/uL (0.0-0.2) D-Dimer (Rita) < 0.27 ug/mlFEU Sodium Level 140 mmol/L (136-145) Potassium Level 3.9 mmol/L (3.5-5.1) Chloride Level 104 mmol/L (98-107) Carbon Dioxide Level 26 mmol/L (21-32) Anion Gap 10 (6-14) Blood Urea Nitrogen 13 mg/dL (8-26) Creatinine 1.1 mg/dL (0.7-1.3) Estimated GFR (Cockcroft-Gault) 88.4 Glucose Level 107 mg/dL (70-99) H Calcium Level 9.1 mg/dL (8.5-10.1) Troponin I Quantitative < 0.017 ng/mL (0.000-0.055) Urine Collection Type Unknown Urine Color Yellow Urine Clarity Clear Urine pH 7.0 Urine Specific [place] 1.025 Urine Protein Negative mg/dL (NEG-TRACE) Urine Glucose (UA) Negative mg/dL (NEG) Urine Ketones (Stick) Negative mg/dL (NEG) Urine Blood Small (NEG) Urine Nitrite Negative (NEG) Urine Bilirubin Negative (NEG) Urine Urobilinogen Dipstick 1.0 mg/dL (0.2 mg/dL) Urine Leukocyte Esterase Negative (NEG) Urine RBC 11-20 /HPF (0-2) Urine WBC 1-4 /HPF (0-4) Urine Squamous Epithelial Cells None /LPF Urine Bacteria Few /HPF (0-FEW) Urine Mucus Marked /LPF Laboratory Tests 01/11/18 18:15 Laboratory Tests 01/11/18 18:15 EKG EKG No STEMI Interpretation Time: 18:10 Radiology/Procedures Radiology/Procedures CXR: no acute findings Course & Med Decision Making Course & Med Decision Making Pertinent Labs and Imaging studies reviewed. (See chart for details) Patient is evaluated and examined immediately on arrival to the ER. His physical exam is unremarkable. His neurologic exam is normal. Orders are placed for standard cardiac workup and IV fluids. Medications for pain. 20:20: Patient is currently feeling improved. No acute etiology for his chest pain is identified. Troponin is not elevated. The patient has been having pain for several weeks. No acute findings on chest x-ray. Patient is discharged to home. He is advised to use ibuprofen for pain. Follow-up with primary care doctor. Return to the ER for any new or worsening symptoms. Dragon Disclaimer Dragon Disclaimer This electronic medical record was generated, in whole or in part, using a voice recognition dictation system. Departure Departure Disposition: HOME, SELF-CARE Condition: GOOD Referrals: NO PCP (PCP) Scripts Ibuprofen (IBUPROFEN) 800 Mg Tablet 800 MG PO PRN TID PRN for PAIN, #30 TAB take with food or milk to avoid upsetting stomach Prov: JENNIFER LAWSON DO 01/11/18 JENNIFER LAWSON DO Jan 11, 2018 19:12
[2018-01-11 19:28] LABS: BACTERIA,URINE FEW /HPF (0-FEW)
[2018-01-11] MEDS ORDERED: IBUP-1060 PO (20:45)
[2018-01-11 20:47] VITALS: BP 141/96
--- NOTE | 2018-01-12 07:55 | RAD ---
EXAM: PORTABLE CHEST 1V DATE: 01/11/2018 7:10 PM INDICATION: Left side chest pain on and off for 2 weeks COMPARISON: 10/20/2013 FINDINGS: The heart is not enlarged. Mediastinal and hilar contours are normal. No focal parenchymal airspace opacity. No pleural effusion or pneumothorax. IMPRESSION: 1. No radiographic evidence for acute cardiopulmonary process. Electronically signed by: Loy Cannon MD (01/12/2018 7:51 AM) [facility]
== END 2018-01-11 21:15 | disposition home or self-care (01) ==
LOC: ER 18:02
DX: R55 Syncope and collapse (principal); R42 Dizziness and giddiness; I10 Essential (primary) hypertension; Z91.013 Allergy to seafood
CPT/HCPCS: 36415; 71045; 80048; 81001; 84484; 85025; 85379; 93005; 96361; 96374; 96375; 99285; J2270; J2405; J7030

== ENCOUNTER 2018-01-16 17:19 | Emergency (ER) | payer BC ==
[~2018-01-16] VITALS: Ht 195.6 cm; Wt 102.1 kg
[~2018-01-16 17:19] MED LIST changes: +IBUP-1060 PO
[2018-01-16 17:23] VITALS: BP 136/87
[2018-01-16 18:14] LABS: BASO # 0.1 x10^3/uL (0.0-0.2); BASO % 1 % (0-3); EOS # 0.2 x10^3/uL (0.0-0.7); EOS % 2 % (0-3); HEMATOCRIT 44.8 % (39.0-53.0); HEMOGLOBIN 15.6 g/dL (13.0-17.5); LYMPH # 3.1 x10^3/uL (1.0-4.8); LYMPH % 34 % (24-48); MEAN CORPUSCULAR HEMOGLOBIN 31 pg (25-35); MEAN CORPUSCULAR HGB CONC 35 g/dL (31-37); MEAN CORPUSCULAR VOLUME 88 fL (79-100); MONO % 11 % (0-9); NEUT % 53 % (31-73); PLATELET COUNT 321 x10^3/uL (140-400); RED BLOOD COUNT 5.12 x10^6/uL (4.30-5.70); RED CELL DISTRIBUTION WIDTH 15.1 % (11.5-14.5); WHITE BLOOD COUNT 9.4 x10^3/uL (4.0-11.0)
[2018-01-16 18:15] LABS: BILIRUBIN,URINE NEGATIVE (NEG); CLARITY,URINE CLEAR; COLOR,URINE YELLOW; NITRITE,URINE NEGATIVE (NEG); PROTEIN,URINE NEGATIVE (NEG-TRACE)
[2018-01-16 18:22] LABS: FECAL OB PT NEGATIVE (NEG)
[2018-01-16 18:23] LABS: CALCIUM 9.1 mg/dL (8.5-10.1); CREATININE 1.2 mg/dL (0.7-1.3); POTASSIUM 3.8 mmol/L (3.5-5.1); PROTHROMBIN TIME PATIENT 11.9 SEC (11.7-14.0)
[2018-01-16 18:29] LABS: ALBUMIN 3.7 g/dL (3.4-5.0); ALBUMIN/GLOBULIN RATIO 0.9 (1.0-1.7); TOTAL BILIRUBIN 0.2 mg/dL (0.2-1.0); TOTAL PROTEIN 7.6 g/dL (6.4-8.2)
[2018-01-16] MEDS ORDERED: IOHEXOL 300 MG/ML 100ML VIAL. IV ONE (18:30)
--- NOTE | 2018-01-16 18:30 | PHYS DOC ---
Past Medical History Past Medical History: Angina, Arrhythmia, Hypertension Additional Past Medical Histor: IRREGULAR HEARTBEAT Past Surgical History: Angioplasty, Other Additional Past Surgical Histo: HEART CATH WITH NO STENTS, LEFT ELBOW I&D 07/12 Alcohol Use: None Drug Use: None Adult General Chief Complaint Chief Complaint: syncope HPI HPI Patient is a 42 year old who presents to the emergency department with complaints of a syncopal episode while he was at work today. Patient states he was seeing spots and felt dizzy before he passed out at work. He complains of left upper quadrant abdominal pain and a headache at this time patient denies any nausea, vomiting, neck pain, back pain or dizziness at this time. Patient states that at first he saw stars after the event that he denies any vision changes at this time. He denies any weakness, ear pain, or confusion. Patient is unsure of the duration of his loss of consciousness. Review of Systems Review of Systems Constitutional: Denies fever or chills [] Eyes: See history of present illness HENT: Denies nasal congestion or sore throat [] Respiratory: Denies cough or shortness of breath [] Cardiovascular: Denies chest pain or palpitations GI: Denies nausea, vomiting, or diarrhea today. Reports having diarrhea times one yesterday with blood in his stool, currently reports left upper quadrant abdominal pain : Denies dysuria, reports history of blood in his urine chronically Musculoskeletal: Denies back pain or joint pain [] Integument: Denies rash or skin lesions [] Neurologic: Denies focal weakness or sensory changes see history of present illness[] All other systems were reviewed and found to be within normal limits, except as documented in this note. Current Medications Current Medications Current Medications Medications (Trade) Dose Ordered Sig/Aruna Start Time Stop Time Status Last Admin Dose Admin Iohexol (Omnipaque 300 Mg/ml) 75 ml 1X ONCE 01/16/18 18:30 01/16/18 18:31 DC 01/16/18 18:35 75 ML Allergies Allergies Allergies Coded Allergies Type Severity Reaction Last Updated Verified shellfish derived Allergy Intermediate rash, vomiting 01/07/15 Yes Physical Exam Physical Exam Constitutional: Well developed, well nourished, no acute distress, non-toxic appearance. [] HENT: Normocephalic, atraumatic, bilateral external ears normal, oropharynx moist, no oral exudates, nose normal. [] Eyes: PERRLA, EOMI, conjunctiva normal, no discharge. [] Neck: Normal range of motion, no tenderness, supple, no stridor. [] Cardiovascular:Heart rate regular rhythm, no murmur [] Lungs & Thorax: Bilateral breath sounds clear to auscultation [] Abdomen: Bowel sounds normal, soft, LUQ tenderness, no masses, no pulsatile masses. [] Skin: Warm, dry, no erythema, no rash. [] Extremities: No cyanosis, no clubbing, ROM intact, no edema. [] Neurologic: Alert and oriented X 3, normal motor function, normal sensory function, no focal deficits noted. [] Psychologic: Affect normal, judgement normal, mood normal. [] Current Patient Data Vital Signs Vital Signs Date Time Temp Pulse Resp B/P (MAP) Pulse Ox O2 Delivery O2 Flow Rate FiO2 01/16/18 17:23 98.4 84 18 136/87 (103) 97 Room Air 98.4 Lab Values Laboratory Tests Test 01/16/18 17:45 01/16/18 18:00 White Blood Count 9.4 x10^3/uL (4.0-11.0) Red Blood Count 5.12 x10^6/uL (4.30-5.70) Hemoglobin 15.6 g/dL (13.0-17.5) Hematocrit 44.8 % (39.0-53.0) Mean Corpuscular Volume 88 fL (79-100) Mean Corpuscular Hemoglobin 31 pg (25-35) Mean Corpuscular Hemoglobin Concent 35 g/dL (31-37) Red Cell Distribution Width 15.1 % (11.5-14.5) H Platelet Count 321 x10^3/uL (140-400) Neutrophils (%) (Auto) 53 % (31-73) Lymphocytes (%) (Auto) 34 % (24-48) Monocytes (%) (Auto) 11 % (0-9) H Eosinophils (%) (Auto) 2 % (0-3) Basophils (%) (Auto) 1 % (0-3) Neutrophils # (Auto) 5.0 x10^3uL (1.8-7.7) Lymphocytes # (Auto) 3.1 x10^3/uL (1.0-4.8) Monocytes # (Auto) 1.0 x10^3/uL (0.0-1.1) Eosinophils # (Auto) 0.2 x10^3/uL (0.0-0.7) Basophils # (Auto) 0.1 x10^3/uL (0.0-0.2) Prothrombin Time 11.9 SEC (11.7-14.0) Prothrombin Time INR 0.9 (0.8-1.1) Urine Collection Type Void Urine Color Yellow Urine Clarity Clear Urine pH 7.0 Urine Specific [place] 1.025 Urine Protein Negative mg/dL (NEG-TRACE) Urine Glucose (UA) Negative mg/dL (NEG) Urine Ketones (Stick) Negative mg/dL (NEG) Urine Blood Trace (NEG) Urine Nitrite Negative (NEG) Urine Bilirubin Negative (NEG) Urine Urobilinogen Dipstick 1.0 mg/dL (0.2 mg/dL) Urine Leukocyte Esterase Negative (NEG) Urine RBC 6-10 /HPF (0-2) Urine WBC Occ /HPF (0-4) Urine Squamous Epithelial Cells Few /LPF Urine Bacteria Few /HPF (0-FEW) Urine Mucus Slight /LPF Sodium Level 141 mmol/L (136-145) Potassium Level 3.8 mmol/L (3.5-5.1) Chloride Level 104 mmol/L (98-107) Carbon Dioxide Level 29 mmol/L (21-32) Anion Gap 8 (6-14) Blood Urea Nitrogen 13 mg/dL (8-26) Creatinine 1.2 mg/dL (0.7-1.3) Estimated GFR (Cockcroft-Gault) 80.0 BUN/Creatinine Ratio 11 (6-20) Glucose Level 125 mg/dL (70-99) H Calcium Level 9.1 mg/dL (8.5-10.1) Total Bilirubin 0.2 mg/dL (0.2-1.0) Aspartate Amino Transferase (AST) 29 U/L (15-37) Alanine Aminotransferase (ALT) 59 U/L (16-63) Alkaline Phosphatase 51 U/L (46-116) Total Protein 7.6 g/dL (6.4-8.2) Albumin 3.7 g/dL (3.4-5.0) Albumin/Globulin Ratio 0.9 (1.0-1.7) L Lipase 229 U/L (73-393) Stool Occult Blood Negative (NEG) Laboratory Tests 01/16/18 17:45 Laboratory Tests 01/16/18 17:45 EKG EKG SR no STEMI read by Dr. Villagran[] Radiology/Procedures Radiology/Procedures PROCEDURE: CT ABD PELV W/ IV CONTRST ONLY PQRS Compliance statement: One or more of the following individualized dose reduction techniques were utilized for this examination: 1. Automated exposure control. 2. Adjustment of the mA and/or kV according to patient size. 3. Use of iterative reconstruction technique. Indication:DIZZY, LEFT SIDE ABD PAIN X 2 WEEKS, [id number] 75ML, PRIOR SENT TECHNIQUE: CT abdomen and pelvis with IV contrast with multiplanar reformats. COMPARISON: 06/01/2006 FINDINGS: Heart is normal in size. No pericardial or pleural effusion. Mild subsegmental atelectasis in the lingula. Otherwise, clear lung bases. Liver, spleen, gallbladder, pancreas, adrenals within normal limits. No nephrolithiasis or hydronephrosis. Bilateral small low attenuating lesions are seen, the largest in left kidney measuring 1.6 cm most likely simple cyst. Dilated right lower pole calyx is seen measuring 3.5 x 2.6 cm without obstructing stone. No enlarged retroperitoneal or pelvic adenopathy. Shotty pelvic lymph nodes are seen, nonspecific but most likely reactive. No free pelvic fluid or ascites. No bowel obstruction. Normal appendix. Urinary bladder demonstrates no radiopaque stones. Prostate is mildly enlarged measuring 5.4 x 4.3 cm (transverse, AP) is. Increased vascularity seen in the pelvis. Inflammatory changes are seen along the right groin vasculature. No pneumoperitoneum. No suspicious bony lesion. IMPRESSION: 1. No nephrolithiasis or hydronephrosis. 2. Bilateral small renal lesions statistically simple cysts. 3. Mildly enlarged prostate with increased vascularity in the pelvis. Clinically correlate with physical exam and PSA and with symptoms of prostatitis. 4. Inflammatory changes along the right groin vasculature. Clinically correlate if there has been previous attempt to place central line in this region. If not focus ultrasound of the right groin recommended depending on the symptoms.[] PROCEDURE: CHEST PA & LATERAL PROCEDURE: CHEST PA LATERAL CLINICAL INDICATION: ER PATIENT. SYNCOPAL EPISODE TODAY. Hx HTN, ASTHMA. PRIOR XRAY. COMPARISON: 01/11/2018 FINDINGS: No pneumothorax identified. Cardiac and mediastinal contours unremarkable. No pulmonary consolidation or acute airspace disease. No acute osseous abnormalities identified. IMPRESSION: No pulmonary consolidation or acute airspace disease. Course & Med Decision Making Course & Med Decision Making Pertinent Labs and Imaging studies reviewed. (See chart for details) Dx: syncopal episode, hematuria [place] head CT rule negative. No neuro deficits at this time. Orthostatic BPs normal. EKG SR, no STEMI. Pt's labs not concerning for acute infection, anemia, or dehydration. Normal rectal exam. Offered to admit patient for syncope. Pt declines, states he feels better and does not want to stay in the hospital. Pt encouraged to follow up with PCP or Urologist Dr. Lucio for further evaluation of hematuria and prostate. [] Dragon Disclaimer Dragon Disclaimer This electronic medical record was generated, in whole or in part, using a voice recognition dictation system. Departure Departure Impression: Primary Impression: Syncope Additional Impression: Hematuria Disposition: HOME, SELF-CARE Condition: STABLE Referrals: NO PCP (PCP) JOSE LUCIO MD Patient Instructions: Hematuria-Brief, Syncope, [id number] Additional Instructions: Follow up with PCP or Urologist Dr. Lucio for further evaluation of hematuria and prostate. Return to ER if symptoms worsen. Problem Qualifiers Primary Impression: Syncope Syncope type: unspecified Qualified Codes: R55 - Syncope and collapse Additional Impression: Hematuria Hematuria type: unspecified type Qualified Codes: R31.9 - Hematuria, unspecified TYLOR DIAMOND PHYSICIAN'S AIDE Jan 16, 2018 18:30
[2018-01-16 18:34] LABS: BACTERIA,URINE FEW /HPF (0-FEW); SQUAMOUS EPITHELIAL CELL,UR FEW /LPF; WBC,URINE OCC /HPF (0-4)
--- NOTE | 2018-01-16 18:50 | RAD ---
PROCEDURE: CHEST PA LATERAL CLINICAL INDICATION: ER PATIENT. SYNCOPAL EPISODE TODAY. Hx HTN, ASTHMA. PRIOR XRAY. COMPARISON: 01/11/2018 FINDINGS: No pneumothorax identified. Cardiac and mediastinal contours unremarkable. No pulmonary consolidation or acute airspace disease. No acute osseous abnormalities identified. IMPRESSION: No pulmonary consolidation or acute airspace disease. Electronically signed by: Germán Overton DO (01/16/2018 6:46 PM) [facility]
--- NOTE | 2018-01-16 19:00 | RAD ---
PQRS Compliance statement: One or more of the following individualized dose reduction techniques were utilized for this examination: 1. Automated exposure control. 2. Adjustment of the mA and/or kV according to patient size. 3. Use of iterative reconstruction technique. Indication:DIZZY, LEFT SIDE ABD PAIN X 2 WEEKS, [id number] 75ML, PRIOR SENT TECHNIQUE: CT abdomen and pelvis with IV contrast with multiplanar reformats. COMPARISON: 06/01/2006 FINDINGS: Heart is normal in size. No pericardial or pleural effusion. Mild subsegmental atelectasis in the lingula. Otherwise, clear lung bases. Liver, spleen, gallbladder, pancreas, adrenals within normal limits. No nephrolithiasis or hydronephrosis. Bilateral small low attenuating lesions are seen, the largest in left kidney measuring 1.6 cm most likely simple cyst. Dilated right lower pole calyx is seen measuring 3.5 x 2.6 cm without obstructing stone. No enlarged retroperitoneal or pelvic adenopathy. Shotty pelvic lymph nodes are seen, nonspecific but most likely reactive. No free pelvic fluid or ascites. No bowel obstruction. Normal appendix. Urinary bladder demonstrates no radiopaque stones. Prostate is mildly enlarged measuring 5.4 x 4.3 cm (transverse, AP) is. Increased vascularity seen in the pelvis. Inflammatory changes are seen along the right groin vasculature. No pneumoperitoneum. No suspicious bony lesion. IMPRESSION: 1. No nephrolithiasis or hydronephrosis. 2. Bilateral small renal lesions statistically simple cysts. 3. Mildly enlarged prostate with increased vascularity in the pelvis. Clinically correlate with physical exam and PSA and with symptoms of prostatitis. 4. Inflammatory changes along the right groin vasculature. Clinically correlate if there has been previous attempt to place central line in this region. If not focus ultrasound of the right groin recommended depending on the symptoms. Electronically signed by: Germán Overton DO (01/16/2018 6:56 PM) [facility]
--- NOTE | 2018-01-17 07:18 | EKG ---
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
== END 2018-01-16 20:05 | disposition home or self-care (01) ==
LOC: ER 17:19
DX: R55 Syncope and collapse (principal); R42 Dizziness and giddiness; R31.9 Hematuria, unspecified; I10 Essential (primary) hypertension; R10.12 Left upper quadrant pain; R51 Headache; R19.7 Diarrhea, unspecified; Z91.013 Allergy to seafood
CPT/HCPCS: 36415; 71046; 74177; 80053; 81001; 82274; 83690; 85025; 85610; 93005; 99284; Q9967

== ENCOUNTER 2018-04-06 01:03 | Emergency (ER) | payer OTHER, BC ==
[~2018-04-06] VITALS: Ht 195.6 cm; Wt 102.1 kg
[2018-04-06] MEDS ORDERED: ALBUTEROL SULFATE 2.5 MG/3 ML NEBU. ONE (01:27)
[2018-04-06] MEDS: ALBUTEROL SULFATE 2.5 MG/3 ML NEBU. NEB ONE (01:49)
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
[2018-04-06 03:07] LABS: BASO # 0.2 x10^3/uL (0.0-0.2); BASO % 1 % (0-3); EOS # 0.2 x10^3/uL (0.0-0.7); EOS % 2 % (0-3); HEMATOCRIT 45.3 % (39.0-53.0); HEMOGLOBIN 15.4 g/dL (13.0-17.5); LYMPH # 4.4 x10^3/uL (1.0-4.8); LYMPH % 39 % (24-48); MEAN CORPUSCULAR HEMOGLOBIN 30 pg (25-35); MEAN CORPUSCULAR HGB CONC 34 g/dL (31-37); MEAN CORPUSCULAR VOLUME 89 fL (79-100); MONO % 9 % (0-9); NEUT # 5.6 x10^3uL (1.8-7.7); NEUT % 49 % (31-73); PLATELET COUNT 329 x10^3/uL (140-400); RED BLOOD COUNT 5.12 x10^6/uL (4.30-5.70); WHITE BLOOD COUNT 11.4 x10^3/uL (4.0-11.0)
[2018-04-06 03:38] LABS: ALBUMIN 3.6 g/dL (3.4-5.0); ALBUMIN/GLOBULIN RATIO 0.9 (1.0-1.7); CALCIUM 9.2 mg/dL (8.5-10.1); CREATININE 1.3 mg/dL (0.7-1.3); GFR 72.6; POTASSIUM 3.9 mmol/L (3.5-5.1); TOTAL BILIRUBIN 0.3 mg/dL (0.2-1.0); TOTAL PROTEIN 7.6 g/dL (6.4-8.2)
[2018-04-06] MEDS ORDERED: VENTOLIN HFA18 GM INH (03:59)
--- NOTE | 2018-04-06 10:22 | EKG ---
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
== END 2018-04-06 04:01 | disposition home or self-care (01) ==
LOC: ER 01:03
DX: T59.811A Toxic effect of smoke, accidental (unintentional), initial encounter (principal); J70.5 Respiratory conditions due to smoke inhalation; R05 Cough; R07.89 Other chest pain; F17.210 Nicotine dependence, cigarettes, uncomplicated; I10 Essential (primary) hypertension; Z95.5 Presence of coronary angioplasty implant and graft; Z91.013 Allergy to seafood; Y92.69 Other specified industrial and construction area as the place of occurrence of the external cause
CPT/HCPCS: 36415; 36600; 71046; 80053; 83605; 84484; 85025; 93005; 94640; 99284; J7613

== ENCOUNTER 2018-06-10 11:57 | Emergency (ER) | payer BC, OTHER ==
[~2018-06-10] VITALS: Ht 195.6 cm; Wt 104.3 kg
[~2018-06-10 11:57] MED LIST changes: +VENTOLIN HFA18 GM INH
[2018-06-10 13:00] VITALS: BP 126/87
--- NOTE | 2018-06-10 13:43 | RAD ---
3 view study of the right elbow Clinical indications: Fell today and heard a pop in the right elbow. Previous surgery to right elbow. Right elbow pain. FINDINGS: No joint effusion is seen. No acute fracture or dislocation or lytic process is evident. There is a surgical screw within the medial epicondyle. Soft tissue swelling of the olecranon bursa is seen consistent with mild bursitis. IMPRESSION: Mild olecranon bursitis. No acute fracture. Electronically signed by: Luan Calderón MD (06/10/2018 1:40 PM) [id number]
--- NOTE | 2018-06-10 14:40 | PHYS DOC ---
Past Medical History Past Medical History: Angina, Arrhythmia, Hypertension Additional Past Medical Histor: IRREGULAR HEARTBEAT Past Surgical History: Angioplasty, Other Additional Past Surgical Histo: HEART CATH WITH NO STENTS, LEFT ELBOW I&D 07/12 Alcohol Use: None Drug Use: None Adult General Chief Complaint Chief Complaint: UPPER EXTREMITY INJURY HPI HPI Patient is a 43 year old male with history of hypertension who presents to the ED today complaining of 10 out of 10 right elbow pain after falling on it today. Patient describes the pain as sharp and constant worse on range of motion. He is also complaining of swelling to the area. He states he has previous surgery to the elbow. Review of Systems Review of Systems Constitutional: Denies fever or chills [] Musculoskeletal: Reports right elbow pain Integument: Denies rash or skin lesions [] Neurologic: Denies headache, focal weakness or sensory changes [] All other systems were reviewed and found to be within normal limits, except as documented in this note. Allergies Allergies Allergies Coded Allergies Type Severity Reaction Last Updated Verified shellfish derived Allergy Intermediate rash, vomiting 01/07/15 Yes Physical Exam Physical Exam Constitutional: Well developed, well nourished, no acute distress, non-toxic appearance. [] Skin: Warm, dry, no erythema, no rash. [] Back: No tenderness, no CVA tenderness. [] Extremities: Right elbow with mild swelling especially around the olecranon process, tenderness to the olecranon process. Full range of motion to the right elbow. +2 right radial pulse. Adequate radial, medial, ulnar sensation to the right upper extremity are +2 radial pulse. Cap refill less than 2 seconds the right fingers. Neurologic: Alert and oriented X 3, normal motor function, normal sensory function, no focal deficits noted. [] Psychologic: Affect normal, judgement normal, mood normal. [] Current Patient Data Vital Signs Vital Signs Date Time Temp Pulse Resp B/P (MAP) Pulse Ox O2 Delivery O2 Flow Rate FiO2 06/10/18 13:00 98.0 89 16 126/87 (100) 98 Room Air 98.0 EKG EKG [] Radiology/Procedures Radiology/Procedures []PROCEDURE: ELBOW RIGHT 3V 3 view study of the right elbow Clinical indications: Fell today and heard a pop in the right elbow. Previous surgery to right elbow. Right elbow pain. FINDINGS: No joint effusion is seen. No acute fracture or dislocation or lytic process is evident. There is a surgical screw within the medial epicondyle. Soft tissue swelling of the olecranon bursa is seen consistent with mild bursitis. IMPRESSION: Mild olecranon bursitis. No acute fracture. Electronically signed by: Luisa Calderón MD (06/10/2018 1:40 PM) [id number] DICTATED and SIGNED BY: LUISA CALDERÓN MD DATE: 06/10/18 7933 Course & Med Decision Making Course & Med Decision Making Pertinent Labs and Imaging studies reviewed. (See chart for details) This is a 43-year-old male patient presenting to the ED today with right elbow pain status post falling, right elbow x-rays interpreted by radiologist were negative for any acute findings, noted for bursitis. Ronnie bandage applied to the right elbow by me. Neurovascular exam is intact. Ice elevation encouraged. Follow-up with the pediatric doctor in one week. Dragon Disclaimer Dragon Disclaimer This electronic medical record was generated, in whole or in part, using a voice recognition dictation system. Departure Departure Impression: Primary Impression: Bursitis of right elbow Disposition: 01 HOME, SELF-CARE Condition: STABLE Referrals: NO PCP (PCP) JAZZ WOOD II, MD Follow-up in one week Patient Instructions: Bursitis, [id number] Additional Instructions: You were seen in the emergency room for right elbow pain, your right elbow xrays are negative for fracture noted for bursitis on the elbow. Keep the RONNIE bandage on, try to ice and elevate the extremity. Follow up with the provided orthopedic doctor and follow-up in the next 7 days. Take [id number] pain relievers especially anti-inflammatories as needed. Problem Qualifiers Primary Impression: Bursitis of right elbow Elbow bursitis location: olecranon bursitis Qualified Codes: M70.21 - Olecranon bursitis, right elbow CARLOS CORTES APRN Jun 10, 2018 14:40
== END 2018-06-10 14:49 | disposition home or self-care (01) ==
LOC: ER 11:57
DX: M70.21 Olecranon bursitis, right elbow (principal); I10 Essential (primary) hypertension; I20.9 Angina pectoris, unspecified; I49.9 Cardiac arrhythmia, unspecified; Y93.89 Activity, other specified
CPT/HCPCS: 73080; 99284

== ENCOUNTER 2018-10-29 12:12 | Emergency (ER) | payer SELFPAY ==
[~2018-10-29] VITALS: Ht 195.6 cm; Wt 110.7 kg
[2018-10-29 12:25] VITALS: BP 138/89
[2018-10-29] MEDS ORDERED: ERYT1OIN6 OP (12:39)
--- NOTE | 2018-10-29 12:39 | PHYS DOC ---
Past Medical History Past Medical History: Angina, Arrhythmia, Hypertension Additional Past Medical Histor: IRREGULAR HEARTBEAT (VASILE SINCLAIR APRN) Past Surgical History: Angioplasty, Other Additional Past Surgical Histo: HEART CATH WITH NO STENTS, LEFT ELBOW I&D 07/12 (VASILE SINCLAIR APRN) Alcohol Use: None Drug Use: None (VASILE SINCLAIR APRN) Adult General Chief Complaint Chief Complaint: EYE PROBLEMS [facility] HPI Patient is a 43 year old male that presents with right upper eyelid swelling for 2 days. Patient rates his pain and discomfort as 4 out of 10 in severity and throbbing. States he saw some exudate come out of it earlier today. States he has been trying heat and ice on it. (VASILE SINCLAIR APRN) Review of Systems Review of Systems Constitutional: Denies fever or chills [] Eyes: Reports upper eyelid swelling with discharge. Denies change in visual acuity HENT: Denies nasal congestion or sore throat [] Respiratory: Denies cough or shortness of breath [] Cardiovascular: No additional information not addressed in HPI [] GI: Denies abdominal pain, nausea, vomiting, bloody stools or diarrhea [] : Denies dysuria or hematuria [] Musculoskeletal: Denies back pain or joint pain [] Integument: Denies rash or skin lesions [] Neurologic: Denies headache, focal weakness or sensory changes [] Endocrine: Denies polyuria or polydipsia [] Complete systems were reviewed and found to be within normal limits, except as documented in this note. (VASILE SINCLAIR APRN) Allergies Allergies Allergies Coded Allergies Type Severity Reaction Last Updated Verified shellfish derived Allergy Intermediate rash, vomiting 01/07/15 Yes (HINA HUNG MD) Physical Exam Physical Exam Constitutional: Well developed, well nourished, no acute distress, non-toxic appearance. [] HENT: Normocephalic, atraumatic, bilateral external ears normal, oropharynx moist, no oral exudates, nose normal. [] Eyes: R eyelid is erythematous with swelling. Neck: Normal range of motion, no tenderness, supple, no stridor. [] Cardiovascular:Heart rate regular rhythm, no murmur [] Lungs & Thorax: Bilateral breath sounds clear to auscultation [] Abdomen: Bowel sounds normal, soft, no tenderness, no masses, no pulsatile masses. [] Skin: Warm, dry, no erythema, no rash. [] Back: No tenderness, no CVA tenderness. [] Extremities: No tenderness, no cyanosis, no clubbing, ROM intact, no edema. [] Neurologic: Alert and oriented X 3, normal motor function, normal sensory function, no focal deficits noted. [] Psychologic: Affect normal, judgement normal, mood normal. [] (VASILE SINCLAIR APRN) Current Patient Data Vital Signs Vital Signs Date Time Temp Pulse Resp B/P (MAP) Pulse Ox O2 Delivery O2 Flow Rate FiO2 10/29/18 12:25 98.8 84 16 138/89 (105) 97 Room Air 98.8 (HINA HUNG MD) EKG EKG [] (VASILE SINCLAIR APRN) Radiology/Procedures Radiology/Procedures [] (VASILE SINCLAIR APRN) Course & Med Decision Making Course & Med Decision Making Pertinent Labs and Imaging studies reviewed. (See chart for details) Patient has been trying heat and ice. Will place on erythromycin. Appears to be Blepharitis. (VASILE SINCLAIR APRN) Course & Med Decision Making Staff Physician Addendum: I was working in the ER during the course of this patient's visit. I was available for consultation as needed, but I was not directly involved in the care of this patient. (HINA HUNG MD) Dragon Disclaimer Dragon Disclaimer This electronic medical record was generated, in whole or in part, using a voice recognition dictation system. (VASILE SINCLAIR APRN) Departure Departure Impression: Primary Impression: Blepharitis of eyelid of right eye Disposition: HOME, SELF-CARE Condition: STABLE Referrals: NO PCP (PCP) Patient Instructions: Blepharitis Additional Instructions: Thank you for visiting [facility]. We appreciate you trusting us with your care. If any additional problems come up don't hesitate to return to visit us. Please follow up with your primary care provider so they can plan additional care if needed and know about the problem that you had. If symptoms worsen come back to the Emergency Department. Any concerning symptoms that start such as chest pain, shortness of air, weakness or numbness on one side of the body, running high fevers or any other concerning symptoms return to the ER. Please fill your medications at any pharmacy and follow the prescription instructions. You have been prescribed an antibiotic today to help fight your infection. Please take all of the antibiotic as directed. If after 48 hours the infection is not improving, please return for more care. If the infection worsens, return to ER for additional care. Please apply warm compresses to closed lid for 5-10 minutes two-four times per day. Wash/massage lids with a cotton swab soaked in a mixture of baby shampoo and water (1:1) mix. Scripts Erythromycin Base (Erythromycin) 1 Gm Oint...g. 1 GM OP QID for 10 Days, [facility] Prov: VASILE SINCLAIR APRN 10/29/18 Problem Qualifiers Primary Impression: Blepharitis of eyelid of right eye Blepharitis type: unspecified type Eyelid: upper Qualified Codes: H01.001 - Unspecified blepharitis right upper eyelid VASILE SINCLAIR APRN Oct 29, 2018 12:39 HINA HUNG MD Nov 01, 2018 08:39
== END 2018-10-29 13:10 | disposition home or self-care (01) ==
LOC: ER 12:12
DX: H01.001 Unspecified blepharitis right upper eyelid (principal); I10 Essential (primary) hypertension; Z95.5 Presence of coronary angioplasty implant and graft; Z91.013 Allergy to seafood
CPT/HCPCS: 99283

== ENCOUNTER 2018-11-06 09:22 | Emergency (ER) | payer SELFPAY ==
[~2018-11-06] VITALS: Ht 195.6 cm; Wt 110.7 kg
[~2018-11-06 09:22] MED LIST changes: +ERYT1OIN6 OP
[2018-11-06 09:24] VITALS: BP 157/101
[2018-11-06] MEDS ORDERED: ERYT1OIN6 OP (10:05)
[2018-11-06] MEDS ORDERED: PRED5DRO16 EACHEYE (10:05)
--- NOTE | 2018-11-06 10:05 | PHYS DOC ---
Past Medical History Past Medical History: Angina, Arrhythmia, Hypertension Additional Past Medical Histor: IRREGULAR HEARTBEAT Past Surgical History: Angioplasty, Other Additional Past Surgical Histo: HEART CATH WITH NO STENTS, LEFT ELBOW I&D 07/12 Alcohol Use: None Drug Use: None Adult General Chief Complaint Chief Complaint: EYE PROBLEMS HPI HPI Patient is a 43 year old Male who presents with one week ago was diagnosed with blepharitis states he was on just the Right upper eyelid and now is on both eyelids. Patient states he got better with that antibiotic use but is now back. Patient states at times when he was working last night and started the computer Blurred vision. Patient states is discharged plain from the eyes but she when he awakens. Patient states it stings and sawyer and itches. Review of Systems Review of Systems Constitutional: Denies fever or chills [] Eyes: change in visual acuity, redness eyelid, or eye lid eye pain [] HENT: Denies nasal congestion or sore throat [] Neurologic: Denies headache, focal weakness or sensory changes [] All other systems were reviewed and found to be within normal limits, except as documented in this note. Allergies Allergies Allergies Coded Allergies Type Severity Reaction Last Updated Verified shellfish derived Allergy Intermediate rash, vomiting 01/07/15 Yes Physical Exam Physical Exam Constitutional: Well developed, well nourished, no acute distress, non-toxic appearance. [] HENT: Normocephalic, atraumatic, bilateral external ears normal, oropharynx moist, no oral exudates, nose normal. [] Eyes: PERRLA, EOMI, conjunctiva normal, discharge, Right eye upper eye lid redness within eye lashes and lower redness. [] Skin: Warm, dry, no erythema, no rash. [] Neurologic: Alert and oriented X 3, normal motor function, normal sensory function, no focal deficits noted. [] Psychologic: Affect normal, judgement normal, mood normal. [] Current Patient Data Vital Signs Vital Signs Date Time Temp Pulse Resp B/P (MAP) Pulse Ox O2 Delivery O2 Flow Rate FiO2 11/06/18 09:24 98.5 89 16 157/101 (119) 99 Room Air 98.5 EKG EKG [] Radiology/Procedures Radiology/Procedures [] Course & Med Decision Making Course & Med Decision Making Patient is a 43 year old Male who presents with one week ago was diagnosed with blepharitis states he was on just the Right upper eyelid and now is on both eyelids. Patient states he got better with that antibiotic use but is now back. Patient states at times when he was working last night and started the computer Blurred vision. Patient states is discharged plain from the eyes but she when he awakens. Patient states it stings and sawyer and itches. Left eye 20/30, right eye 20/15, both eyes 20/15. PERRLA. Hematuria with steady gait. Redness and slight 1+ swelling limited to upper eyelid within the eyelashes and bottom eye lashes. No Extraocular motion pain. No sclera redness or swelling. Dragon Disclaimer Dragon Disclaimer This electronic medical record was generated, in whole or in part, using a voice recognition dictation system. Departure Departure Impression: Primary Impression: Blepharitis of eyelid of right eye Disposition: HOME, SELF-CARE Condition: STABLE Referrals: NO PCP (PCP) Patient Instructions: Blepharitis Additional Instructions: Follow up with primary care physician as soon as possible. Scripts Hydrocodone/Apap 5-325 (NORCO 5-325 TABLET) 1 Each Tablet 1 TAB PO PRN Q6HRS PRN for PAIN, #10 TAB 0 Refills Prov: MARÍA WHEELER APRN 11/06/18 Prednisolone Acetate (PREDNISOLONE ACETATE) 5 Ml Drops.susp 1 DROP EACHEYE QID for 7 Days, #10 ML Prov: MARÍA WHEELER APRN 11/06/18 Erythromycin Base (Erythromycin) 1 Gm Oint...g. 1 GM OP QHS for 14 Days, #[address] under eyelid daily at night for 14 days. Prov: MARÍA WHEELER APRN 11/06/18 Problem Qualifiers Primary Impression: Blepharitis of eyelid of right eye Blepharitis type: unspecified type Eyelid: both upper and lower Qualified Codes: H01.00A - Unspecified blepharitis right eye, upper and lower eyelids MARÍA WHEELER APRN Nov 06, 2018 10:05
[2018-11-06] MEDS ORDERED: HYDR-3164 PO (10:10)
== END 2018-11-06 10:12 | disposition home or self-care (01) ==
LOC: ER 09:22
DX: H01.00A Unspecified blepharitis right eye, upper and lower eyelids (principal); I10 Essential (primary) hypertension; Z95.5 Presence of coronary angioplasty implant and graft; Z91.013 Allergy to seafood
CPT/HCPCS: 99283

== ENCOUNTER 2018-12-02 14:57 | Emergency (ER) | payer SELFPAY ==
[~2018-12-02] VITALS: Ht 195.6 cm; Wt 110.7 kg
[~2018-12-02 14:57] MED LIST changes: +HYDR-3164 PO; +PRED5DRO16 EACHEYE
[2018-12-02 16:15] VITALS: BP 147/75
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
== END 2018-12-02 16:30 | disposition home or self-care (01) ==
LOC: ER 14:57
DX: M54.5 Low back pain (principal); M54.6 Pain in thoracic spine; Z77.098 Contact with and (suspected) exposure to other hazardous, chiefly nonmedicinal, chemicals; E78.00 Pure hypercholesterolemia, unspecified; Z91.013 Allergy to seafood
CPT/HCPCS: 99281

== ENCOUNTER 2021-07-25 14:44 | Emergency (ER) | payer SELFPAY ==
[~2021-07-25] VITALS: Ht 195.6 cm; Wt 108.6 kg
[~2021-07-25 14:44] MED LIST changes: -DOXY100C2 PO; +DOXY100C3 PO
[2021-07-25] MEDS ORDERED: IV RINGERS,LACTATED 1000ML 1,000 ML IV ONE (15:45)
[2021-07-25 15:56] LABS: BASO # 0.1 x10^3/uL (0.0-0.2); BASO % 1 % (0-3); EOS # 0.2 x10^3/uL (0.0-0.7); EOS % 2 % (0-3); HEMATOCRIT 41.8 % (39.0-53.0); HEMOGLOBIN 14.3 g/dL (13.0-17.5); LYMPH % 30 % (24-48); MEAN CORPUSCULAR HEMOGLOBIN 30 pg (25-35); MEAN CORPUSCULAR HGB CONC 34 g/dL (31-37); MEAN CORPUSCULAR VOLUME 88 fL (79-100); MONO # 0.7 x10^3/uL (0.0-1.1); MONO % 7 % (0-9); NEUT # 6.1 x10^3/uL (1.8-7.7); NEUT % 60 % (31-73); PLATELET COUNT 388 x10^3/uL (140-400); RED BLOOD COUNT 4.78 x10^6/uL (4.30-5.70); RED CELL DISTRIBUTION WIDTH 14.9 % (11.5-14.5); WHITE BLOOD COUNT 10.1 x10^3/uL (4.0-11.0)
[2021-07-25 16:03] LABS: CALCIUM 8.9 mg/dL (8.5-10.1); CREATININE 1.1 mg/dL (0.7-1.3); GFR 86.8; POTASSIUM 3.9 mmol/L (3.5-5.1)
[2021-07-25 16:09] LABS: ALBUMIN/GLOBULIN RATIO 1.1 (1.0-1.7); MAGNESIUM 1.9 mg/dL (1.8-2.4); TOTAL BILIRUBIN 0.3 mg/dL (0.2-1.0); TOTAL PROTEIN 7.6 g/dL (6.4-8.2)
[2021-07-25 16:17] LABS: AMPHETAMINE/METHAMPHETAMINE NEG (NEG); BARBITURATES NEG (NEG); BENZODIAZEPINES NEG (NEG); CANNABINOIDS NEG (NEG); COCAINE NEG (NEG); METHADONE NEG (NEG); OPIATES NEG (NEG); PHENCYCLIDINE NEG (NEG)
[2021-07-25 16:19] LABS: BACTERIA,URINE 0 /HPF (0-FEW)
--- NOTE | 2021-07-25 16:57 | PHYS DOC ---
Past Medical History Past Medical History: Arrhythmia, CAD, Diabetes-Type II, High Cholesterol, HI Additional Past Medical Histor: IRREGULAR HEARTBEAT, BPH Past Surgical History: Other Additional Past Surgical Histo: cardiac cath, right elbow surgery Smoking Status: Current Every Day Smoker Additional Information: 1 ppd Alcohol Use: Sober Additional Information: sober since 1997 Drug Use: None General Adult EDM: Chief Complaint: DIZZY/LIGHT HEADED HPI: HPI: Patient is a 46 year old insulin-dependent type 2 diabetic male who presents via EMS with complaint of low blood sugar prior to arrival. Patient states that he was feeling lightheaded, so he used his mother's blood glucose monitor to check his blood sugar (though this was not reported to EMS or nursing staff). He states that it read 40. Patient states he drank some coffee with cream and sugar, and then went to his vehicle to drive himself to the hospital. En route, he was pulled over by police and was issued multiple tickets. Per EMS, patient's blood sugar was 120. EMS did not see any history of hypoglycemic readings on his blood glucose monitor. Last recorded blood sugar was 124. Patient takes metformin and insulin for his DMII. Patient states he is in the process of bowel prep for an EGD and colonoscopy scheduled for tomorrow related to early satiation. Review of Systems: Review of Systems: Constitutional: Denies fever, chills or generalized weakness Eyes: Denies change in visual acuity, visual field deficits or discharge HENT: Denies ear pain, nasal congestion or sore throat Respiratory: Denies cough or shortness of breath Cardiovascular: Denies chest pain, palpitations or edema GI: Denies abdominal pain, nausea, vomiting, bloody stools or diarrhea : Denies dysuria or hematuria Musculoskeletal: Denies back pain or joint pain Integument: Denies rash or other skin lesion Neurologic: See HPI Endocrine: See HPI Heart Score: C/O Chest Pain: No Current Medications: Current Medications Medications (Trade) Dose Ordered Sig/Aruna Start Time Stop Time Status Last Admin Dose Admin Ringer's Solution 1,000 ml @ 1,000 mls/hr 1X ONCE 07/25/21 15:45 07/25/21 16:44 DC 07/25/21 15:58 1,000 MLS/HR Allergies: Allergies: Allergies Coded Allergies Type Severity Reaction Last Updated Verified shellfish derived Allergy Intermediate rash, vomiting 01/07/15 Yes Physical Exam: PE: Constitutional: Well developed, well nourished, no acute distress, non-toxic appearance. HENT: Normocephalic, atraumatic, bilateral external ears normal, oropharynx moist. Eyes: PERRL, EOMI, conjunctiva normal, no discharge. Neck: Normal range of motion, no stridor. Thorax: Equal thoracic expansion, no increased work of breathing. Abdomen: Bowel sounds normal, soft, no tenderness, no masses, no pulsatile masses. Skin: Warm, dry, no erythema, no rash. Extremities: No cyanosis, no clubbing, ROM intact, no edema. Neurologic: Alert and oriented x4, normal motor function, normal sensory function, no focal deficits noted. Current Patient Data: Labs: Laboratory Tests Test 07/25/21 14:46 07/25/21 15:20 07/25/21 16:00 07/25/21 16:40 Glucose (Fingerstick) 135 mg/dL (70-99) H 93 mg/dL (70-99) White Blood Count 10.1 x10^3/uL (4.0-11.0) Red Blood Count 4.78 x10^6/uL (4.30-5.70) Hemoglobin 14.3 g/dL (13.0-17.5) Hematocrit 41.8 % (39.0-53.0) Mean Corpuscular Volume 88 fL (79-100) Mean Corpuscular Hemoglobin 30 pg (25-35) Mean Corpuscular Hemoglobin Concent 34 g/dL (31-37) Red Cell Distribution Width 14.9 % (11.5-14.5) H Platelet Count 388 x10^3/uL (140-400) Neutrophils (%) (Auto) 60 % (31-73) Lymphocytes (%) (Auto) 30 % (24-48) Monocytes (%) (Auto) 7 % (0-9) Eosinophils (%) (Auto) 2 % (0-3) Basophils (%) (Auto) 1 % (0-3) Neutrophils # (Auto) 6.1 x10^3/uL (1.8-7.7) Lymphocytes # (Auto) 3.0 x10^3/uL (1.0-4.8) Monocytes # (Auto) 0.7 x10^3/uL (0.0-1.1) Eosinophils # (Auto) 0.2 x10^3/uL (0.0-0.7) Basophils # (Auto) 0.1 x10^3/uL (0.0-0.2) Sodium Level 140 mmol/L (136-145) Potassium Level 3.9 mmol/L (3.5-5.1) Chloride Level 103 mmol/L (98-107) Carbon Dioxide Level 25 mmol/L (21-32) Anion Gap 12 (6-14) Blood Urea Nitrogen 9 mg/dL (8-26) Creatinine 1.1 mg/dL (0.7-1.3) Estimated GFR (Cockcroft-Gault) 86.8 BUN/Creatinine Ratio 8 (6-20) Glucose Level 104 mg/dL (70-99) H Calcium Level 8.9 mg/dL (8.5-10.1) Magnesium Level 1.9 mg/dL (1.8-2.4) Total Bilirubin 0.3 mg/dL (0.2-1.0) Aspartate Amino Transferase (AST) 20 U/L (15-37) Alanine Aminotransferase (ALT) 40 U/L (16-63) Alkaline Phosphatase 70 U/L (46-116) Troponin I High Sensitivity 6 ng/L (4-75) Total Protein 7.6 g/dL (6.4-8.2) Albumin 4.0 g/dL (3.4-5.0) Albumin/Globulin Ratio 1.1 (1.0-1.7) Urine Collection Type Unknown Urine Color (Auto) Light yellow Urine Turbidity Clear Urine pH (Auto) 5.0 (<5.0-8.0) Urine Specific [place] 1.012 (1.000-1.030) Urine Protein (Auto) Negative mg/dL (Negative) Urine Glucose (Auto)(UA) Negative mg/dL (Negative) Urine Ketones (Auto) Negative mg/dL (Negative) Urine Blood (Auto) Moderate (Negative) Urine Nitrite Negative (Negative) Urine Bilirubin (Auto) Negative (Negative) Urine Urobilinogen (Auto) Normal mg/dL (Normal) Urine Leukocyte Esterase (Auto) Negative (Negative) Urine RBC 1-2 /HPF (0-2) Urine WBC 1-4 /HPF (0-4) Urine Squamous Epithelial Cells Occ /LPF Urine Bacteria 0 /HPF (0-FEW) Urine Opiates Screen Neg (NEG) Urine Methadone Screen Neg (NEG) Urine Barbiturates Neg (NEG) Urine Phencyclidine Screen Neg (NEG) Urine Amphetamine/Methamphetamine Neg (NEG) Urine Benzodiazepines Screen Neg (NEG) Urine Cocaine Screen Neg (NEG) Urine Cannabinoids Screen Neg (NEG) Urine Ethyl Alcohol Neg (NEG) Laboratory Tests 07/25/21 15:20 Laboratory Tests 07/25/21 15:20 Vital Signs: Vital Signs Date Time Temp Pulse Resp B/P (MAP) Pulse Ox O2 Delivery O2 Flow Rate FiO2 07/25/21 17:01 75 154/93 (113) 98 Room Air 07/25/21 16:31 76 20 143/86 (105) 99 Room Air 07/25/21 16:01 84 20 152/98 (116) 98 Room Air 07/25/21 15:46 82 20 155/96 (115) 96 Room Air 07/25/21 15:16 87 16 148/100 (116) 97 Room Air 07/25/21 14:57 101 20 158/97 (117) 97 Room Air 07/25/21 14:44 98.5 91 18 165/104 (124) 98 Room Air 98.5 EKG: EKG: EKG Interpreted by Dr. Patel, taken at 1452: Regular rate and rhythm 91 bpm with no ectopic beats. QT 358 ms/QTc 448 ms. No STEMI. Course & Med Decision Making: Course & Med Decision Making Pertinent Labs and Imaging studies reviewed. (See chart for details) Patient is a 46-year-old diabetic male who presents with reported hypoglycemia prior to arrival. Patient's blood sugars are stable during his stay in the department. He does not take any sulfonylureas to control his diabetes. Patient was advised to increase his p.o. intake of fluids with sugar, as he is not eating during his bowel prep. Patient should closely monitor blood sugar upon discharge. Return precautions were provided. Patient understands and is agreeable to discharge plan. Patient case was discussed with Dr. Patel, a ttending, prior to discharge. Dragon Disclaimer: Dragon Disclaimer: This electronic medical record was generated, in whole or in part, using a voice recognition dictation system. Departure Departure Impression: Primary Impression: Diabetes mellitus type 2, insulin dependent Additional Impression: Hx of hypoglycemia Disposition: HOME / SELF CARE / HOMELESS Condition: GOOD Referrals: NO PCP (PCP) Patient Instructions: How to Avoid Diabetes Problems, Hypoglycemia, [id number], Monitoring for Diabetes Additional Instructions: EMERGENCY DEPARTMENT GENERAL DISCHARGE INSTRUCTIONS Thank you for coming to [facility] Emergency Department (ED) today and trusting us with you care. We trust that you had a positive experience in our Emergency Department. If you wish to speak to the department management, you may call the director at . YOUR FOLLOW UP INSTRUCTIONS ARE FOLLOWS: 1. Follow up with your primary care doctor. If you do not have a primary doctor, please ask for a resource list of physicians or clinics that may be able to assist you with follow up care. 2. The emergency provider has interpreted your imaging studies, if any were ordered. The radiology offender job retention specialist also reviewed them. If there is a change in the findings, you will be notified in 48 hours when at all possible. 3. If a lab test or culture has been done, your results will be reviewed and you will be notified if you need a change in treatment. 4. Follow instructions verbalized to you and refer to the printouts if needed. ADDITIONAL INSTRUCTIONS AND INFORMATION: 1. Your care today has been supervised by a physician who is specially trained in emergency care. Many problems require more than one evaluation for a complete diagnosis and treatment. We recommend that you schedule your follow up appointment as recommended to ensure complete treatment of you illness or injury. If you are unable to obtain follow up care and continue to have a problem, or if your condition worsens, we recommend that you return to the ED. 2. We are not able to safely determine your condition over the phone nor are we able to give sound medical advice over the phone. For these safety reasons, if you call for medical advice we will ask you to come to the ED for further evaluation. 3. If you have any questions regarding these discharge instructions please call the ED at . SAFETY INFORMATION: In the interest of safety, wellness, and injury prevention; we encourage you to wear your seat belt, if you smoke; quite smoking, and we encourage family to use a protective helmet for bicycling and other sporting events that present an increased risk for head injury. IF YOUR SYMPTOMS WORSEN OR NEW SYMPTOMS DEVELOP, OR YOU HAVE CONCERNS ABOUT YOUR CONDITION; OR IF YOUR CONDITION WORSENS WHILE YOU ARE WAITING FOR YOUR FOLLOW UP APPOINTMENT; EITHER CONTACT YOUR PRIMARY CARE DOCTOR, THE PHYSICIAN WHOSE NAME AND NUMBER YOU WERE GIVEN, OR RETURN TO THE ED IMMEDIATELY. CATARINO SALAS July 25, 2021 16:57
[2021-07-25 17:01] VITALS: BP 154/93
--- NOTE | 2021-07-26 09:09 | EKG ---
[facility] [address] [place] [address] Test Date: 2021-07-25 Test Time: 14:52:00 Pat Name: SARAH MARCUS Department: Room: Gender: M [employer] Tender: : 1975 Requested By: CATARINO SALAS Order Number: [id number] Reading MD: Darien Colin MD Measurements Intervals [place] Rate: 91 P: 0 MD: 162 QRS: 24 QRSD: 86 T: 11 QT: 358 QTc: 448 Interpretive Statements SINUS RHYTHM Electronically Signed On 07-26-2021 10:56:39 CDT by Darien Colin MD
== END 2021-07-25 17:08 | disposition home or self-care (01) ==
LOC: ER 14:44
DX: E11.649 Type 2 diabetes mellitus with hypoglycemia without coma (principal); E78.00 Pure hypercholesterolemia, unspecified; F17.200 Nicotine dependence, unspecified, uncomplicated; I25.10 Atherosclerotic heart disease of native coronary artery without angina pectoris; I25.2 Old myocardial infarction; Z91.013 Allergy to seafood
CPT/HCPCS: 36415; 80053; 80307; 81001; 82962; 83735; 84484; 85025; 93005; 96360; 99285; J7120